=== PATIENT | female | born 1960 | race Caucasian/White ===

== ENCOUNTER → 2017-01-25 | Outpatient (CLI) | payer OTHER ==
[~2017-01-25] MED LIST: AMARYL2 MG PO; AMOXIL500 MG PO; LISINOPRIL40 MG PO; ONGLYZA5 MG PO; PAROXETINE HCL40 MG PO; TYLENOL W/CODEI1 TA2 PO
[2017-01-25 13:26] LABS: BUN 14 mg/dL (7-18); GFR (ESTIMATED) 87 ML/MIN (59-)
== END ==
LOC: LAB 12:15
PROVIDERS: Internal Medicine Adolescent Medicine
DX: E78.2 Mixed hyperlipidemia (principal); E11.9 Type 2 diabetes mellitus without complications